=== PATIENT | male | born 1960 | race Caucasian/White ===

== ENCOUNTER 2017-10-22 06:25 | Day surgery (SDC) | payer OTHER ==
[~2017-10-22] VITALS: Ht 182.9 cm; Wt 97.5 kg
[~2017-10-22 06:25] MED LIST: ACYCLOVIR800 MG PO; EMBEDA 30-1.2 M1 CAP; GABAPENTIN400 M2 PO; HYDROCODONE/ACE1 TAB PO; OMEPRAZOLE20 M1 PO
[2017-10-22 07:59] VITALS: BP 107/79
[2017-10-22] MEDS ORDERED: HYDROCODONE/ACE1 TAB PO (08:31)
== END 2017-10-22 08:45 | disposition home or self-care (01) | DRG 552 ==
LOC: ORM 06:25
PROVIDERS: ATTEND Anesthesiology Pain Medicine
PROC: 3E0T3BZ Introduction of Anesthetic Agent into Peripheral Nerves and Plexi, Percutaneous Approach (ICD-10-PCS; principal; 2017-10-22)
PROC: 3E0T33Z Introduction of Anti-inflammatory into Peripheral Nerves and Plexi, Percutaneous Approach (ICD-10-PCS; 2017-10-22)
PROC: 3E0T3BZ Introduction of Anesthetic Agent into Peripheral Nerves and Plexi, Percutaneous Approach (ICD-10-PCS; 2017-10-22)
PROC: 3E0T33Z Introduction of Anti-inflammatory into Peripheral Nerves and Plexi, Percutaneous Approach (ICD-10-PCS; 2017-10-22)
DX: M51.05 Intervertebral disc disorders with myelopathy, thoracolumbar region (principal); M51.35 Other intervertebral disc degeneration, thoracolumbar region

== ENCOUNTER 2021-08-31 06:55 | Day surgery (SDC) | payer MEDICAID ==
[~2021-08-31] VITALS: Ht 182.9 cm; Wt 103.4 kg
[~2021-08-31 06:55] MED LIST changes: +FLONASE AL50 MCG/ACT; +LORTAB 1010 MG PO; +MONTELUKAST SOD10 MG PO; +TAMSULOSIN HCL0.4 MG PO
[2021-08-31 09:16] VITALS: BP 112/70
== END 2021-08-31 09:00 | disposition home or self-care (01) ==
LOC: ORM 06:55
PROVIDERS: ATTEND Surgery
DX: Z12.11 Encounter for screening for malignant neoplasm of colon (principal); D12.3 Benign neoplasm of transverse colon; K64.8 Other hemorrhoids; Z86.010 Personal history of colon polyps